=== PATIENT | female | born 1990 | race Caucasian/White ===

== ENCOUNTER 2019-05-11 14:17 | Emergency (ER) | payer BC, OTHER ==
[2019-05-11 14:33] VITALS: BP 104/60; PULSE 89; TEMP 98.1; BMI 30.1
--- NOTE | 2019-05-11 14:39 | PDOC ---
History of Present Illness - General Chief Complaint: Injury Stated Complaint: LT ANKLE INJURY Time Seen by Provider: 05/11/19 14:34 - History of Present Illness Initial Comments: 05/11/19 14:38 29-year-old female without comorbidities presents for evaluation of right ankle pain. She describes a inversion type injury 2 days ago Past History - Past Medical History Allergies/Adverse Reactions: Allergies Allergy/AdvReac Type Severity Reaction Status Date / Time No Known Allergies Allergy Verified 05/11/19 14:37 COPD: No Thyroid Disease: No - Immunization History Immunization Up to Date: Yes - Psycho Social/Smoking Cessation Hx Smoking History: Never smoked Have you smoked in the past 12 months: No Number of Cigarettes Smoked Daily: 5 Information on smoking cessation initiated: No 'Breaking Loose' booklet given: 08/06/13 Hx Alcohol Use: No Drug/Substance Use Hx: No Substance Use Type: Alcohol Review of Systems - Review of Systems Musculoskeletal: Yes: Joint Pain *Physical Exam - Vital Signs Last Vital Signs Temp Pulse Resp BP Pulse Ox 98.1 F 89 18 104/60 100 05/11/19 14:30 05/11/19 14:30 05/11/19 14:30 05/11/19 14:30 05/11/19 14:30 - Physical Exam 05/11/19 14:38 Ankle skin color and temperature normal range of motion is slightly limited. There is no tenderness about the proximal fibula or along its distal course. No tenderness about the medial lateral malleolus base of the fifth metatarsal or navicular. Mild tenderness over the ATFL without instability no gross sensorimotor deficits neurovascular intact. ED Treatment Course - RADIOLOGY Radiology Studies Ordered: Category Date Time Status ANKLE-RIGHT [RAD] Stat Radiology 05/11/19 14:35 Ordered Medical Decision Making - Medical Decision Making 05/11/19 14:38 No fracture trauma or destructive process on radiograph today weight-bear as tolerated with crutches and Aircast follow-up with orthopedics Discharge - Discharge Information Problems reviewed: Yes Clinical Impression/Diagnosis: Right ankle sprain Condition: Stable Disposition: HOME - Admission No - Follow up/Referral Referrals: Suhkdeep Vera DO [Staff Physician] - - Patient Discharge Instructions Additional Instructions: You may weight-bear as tolerated with use of crutches in the Aircast Tylenol as directed for pain. Return to the emergency room for worsening symptoms. And without fail please follow-up with orthopedic surgery in 1 to 2 days for further evaluation and treatment options. - Post Discharge Activity Work/Back to School Note: Back to Work
== END 2019-05-11 15:15 | disposition home or self-care (01) ==
LOC: JERFT 14:17
PROC: 2W3QX1Z Immobilization of Right Lower Leg using Splint (ICD-10-PCS; principal; 2019-05-11)
DX: S93.401A Sprain of unspecified ligament of right ankle, initial encounter (principal); X58.XXXA Exposure to other specified factors, initial encounter; Y93.9 Activity, unspecified; Y92.89 Other specified places as the place of occurrence of the external cause
CPT/HCPCS: 73610-TC-RT-FY; 99281-25

== ENCOUNTER 2021-09-30 10:01 | Emergency (ER) | payer OTHER ==
[2021-09-30 10:14] VITALS: BP 112/77; PULSE 77; TEMP 97.7; BMI 31.8
[2021-09-30] MEDS ORDERED: SODIUM CHLORIDE 0.9% 500 ML INFUS.BAG IV ONE (10:50)
[2021-09-30 11:09] LABS: BASO % 1.1 % (0-2.0); EOS % 1.3 % (0-4.5); HEMATOCRIT 40.1 % (32.4-45.2); HEMOGLOBIN 13.9 GM/dL (10.7-15.3); LYMPH % 17.3 % (8-40); MCHC 34.6 g/dl (32.0-36.0); MEAN CELL VOLUME 83.7 fl (80-96); MEAN PLT VOLUME 8.9 fl (7.5-11.1); MONO % 5.4 % (3.8-10.2); NEUT % 74.9 % (42.8-82.8); PLATELET COUNT 220 10^3/uL (134-434); RBC 4.79 M/mm3 (3.60-5.2); WHITE BLOOD COUNT 8.1 K/mm3 (4.0-10.0)
[2021-09-30 11:27] LABS: CALCIUM 9.1 mg/dL (8.5-10.1)
[2021-09-30 11:28] LABS: ALBUMIN 3.7 g/dl (3.4-5.0); BLOOD UREA NITROGEN 11.2 mg/dL (7-18)
[2021-09-30 11:31] LABS: CREATININE 0.7 mg/dL (0.55-1.3)
[2021-09-30 11:32] LABS: BILIRUBIN,TOTAL 0.6 mg/dL (0.2-1); TOT PROT 7.3 g/dl (6.4-8.2)
== END 2021-09-30 12:41 | disposition home or self-care (01) ==
LOC: JER 10:01
DX: R42 Dizziness and giddiness (principal); R11.0 Nausea
CPT/HCPCS: 36415; 80053; 84703; 85025; 93005; 93010; 99284-25